=== PATIENT | male | born 1940 | race Caucasian/White ===

== ENCOUNTER 2024-10-25 16:27 | Emergency (ER) | payer MEDICARE ==
[2024-10-25 17:32] LABS: #Basophils 0.02 10x3/uL (0.0-0.2); #Eosinophils 0.29 10x3/uL (0.0-0.5); #Monocytes 0.63 10x3/uL (0.0-1.1); #Neutrophils 4.05 10x3/uL (1.5-8.4); %Basophils 0.3 % (0.0-2.0); %Eosinophils 4.6 % (0.0-6.0); %Lymphocytes 21.4 % (18.0-47.0); %Monocytes 9.9 % (0.0-10.0); %Neutrophils 63.6 % (40.0-75.0); Hematocrit 32.8 % (38.8-50.0); Hemoglobin 10.6 g/dL (13.5-17.5); Mean Corpuscular HGB CONC 32.3 g/dL (32.0-36.0); Mean Corpuscular Hemoglobin 29.7 pg (27.0-33.0); Mean Corpuscular Volume 91.9 fL (81.2-95.1); Mean Platelet Volume 9.6 fL (7.4-10.4); Platelet Count 175 10x3/uL (150-450); Red Blood Cell (RBC) Count 3.57 10x6/uL (4.32-5.72); White Blood Cell (WBC) Count 6.4 10x3/uL (3.5-10.5)
[2024-10-25 17:46] LABS: Actual Bicarbonate (HCO3v) 26.2 mEq/L (22-28); Analyzer IN Cardio CS ER; Base Excess 0.9 mEq/L (-2 - +2); Calcium, Ionized (venous) 1.08 mmol/L (1.16-1.32); Chloride (VBG) 104 mmol/L (98-106); Hematocrit-VBG 35 % (42.0-52.0); Potassium (VBG) 3.94 mmol/L (3.70-5.30); Puncture Site Other Site; RapidComm Collect By LAB; Sodium 140 mmol/L (133-146)
[2024-10-25 17:47] LABS: ALT (SGPT) 8 U/L (8-55); AST (SGOT) 28 U/L (5-34); Albumin 3.9 g/dL (3.4-4.8); Alkaline Phosphatase 50 U/L (40-110); Anion Gap 13 mmol/L (10-20); BUN (Urea Nitrogen) 21 mg/dL (8.4-25.7); Bilirubin, Total 0.2 mg/dL (0.2-1.2); Calc. Creatinine Clearance 0 mL/min (70-130); Calcium 9.4 mg/dL (7.8-10.44); Carbon Dioxide 25 mmol/L (23-31); Chloride 105 mmol/L (98-107); Estimated GFR 37; Globulin 2.5 g/dL (2.4-3.5); Glucose 108 mg/dL (83-110); Lipase 14 U/L (8-78); Magnesium 2.1 mg/dL (1.6-2.6); Protein, Total 6.4 g/dL (5.8-8.1); Sodium 139 mmol/L (136-145)
[2024-10-25 17:54] LABS: Troponin I 0.061 ng/mL (< 0.028)
[2024-10-25 19:53] LABS: Bilirubin Neg (Negative); Blood, Urine Negative (Negative); Clarity Clear (Clear); Glucose, Urine (Dipstick) Normal (Negative); Ketone, Urine Negative (Negative); Leukocyte Negative (Negative); Nitrite Negative (Negative); Protein, Urine (Dipstick) 15 mg/dl (Neg-Trace); Urobilinogen Normal mg/dL (Less than 2)
[2024-10-25 20:01] LABS: CAUTI Indications for Culture Pelvic or flank pain; RBC/HPF None Seen HPF (0-3); Squamous Epithelial None Seen HPF (0-3); WBC/HPF 0-3 HPF (0-3)
[2024-10-25 20:02] LABS: Bacteria/HPF None Seen HPF (None Seen)
[2024-10-25 20:03] LABS: Urine Culture Reflex No No
== END 2024-10-25 21:50 | disposition short-term general hospital (02) ==
LOC: CSHERS 16:27
DX: R53.1 Weakness (principal); R79.89 Other specified abnormal findings of blood chemistry; M54.2 Cervicalgia; R51.9 Headache, unspecified; I10 Essential (primary) hypertension; W18.30XA Fall on same level, unspecified, initial encounter; Y93.01 Activity, walking, marching and hiking; Y92.009 Unspecified place in unspecified non-institutional (private) residence as the place of occurrence of the external cause
CPT/HCPCS: 36415; 70450; 71045; 72125; 80053; 81001; 82805; 83605; 83690; 83735; 84484; 85025; 93005